=== PATIENT | female | born 2000 | race Asian ===

== ENCOUNTER 2024-04-02 13:28 | Emergency (ER) | payer SELFPAY ==
[2024-04-02] MEDS ORDERED: Acetaminophen 500 MG TAB ONE (14:17)
== END 2024-04-02 14:23 | disposition home or self-care (01) ==
LOC: CSHERS 13:28
DX: S00.03XA Contusion of scalp, initial encounter (principal); S80.211A Abrasion, right knee, initial encounter; W05.1XXA Fall from non-moving nonmotorized scooter, initial encounter
CPT/HCPCS: 99283